=== PATIENT | female | born 1955 | race Caucasian/White ===

== ENCOUNTER 2018-09-23 22:11 | Inpatient (IN) | payer MEDICARE ==
[~2018-09-23] VITALS: Ht 162.6 cm; Wt 89.4 kg
[2018-09-23] MEDS ORDERED: SODIUM CHLORIDE 0.9% 1000ML 1,000 ML IV ONE ×2 (22:45)
[2018-09-23] MEDS ORDERED: DIATRIZOATE MEGL/DIATRIZOA SOD 30 ML BTL PO ONE (23:22)
[2018-09-23 23:36] LABS: BASOPHILS % 0.1 % (0.0-1.0); EOSINOPHILS # (AUTO) 0.1 (0.0-0.4); EOSINOPHILS % 0.4 % (0.0-6.0); HEMATOCRIT 27.3 % (34.2-44.1); HEMOGLOBIN 8.6 g/dL (12.0-16.0); LYMPHOCYTES # (AUTO) 1.7 (1.0-3.2); LYMPHOCYTES % 12.7 % (18.0-39.1); MEAN CORPUSCULAR HGB CONC 31.5 g/dL (31-35); MEAN CORPUSCULAR VOLUME 63.6 fL (81-99); MONOCYTES # (AUTO) 0.8 (0.2-0.8); MONOCYTES % 6.2 % (4.4-11.3); NEUTROPHILS # (AUTO) 10.7 (2.1-6.9); NEUTROPHILS % 79.9 % (38.7-80.0); PLATELET COUNT 174 x10e3/uL (140-360); RED BLOOD COUNT 4.29 x10e6/uL (3.6-5.1); RED CELL DISTRIBUTION WIDTH 15.5 % (11.7-14.4)
[2018-09-23 23:50] LABS: INR 2.02; PROTHROMBIN TIME 24.4 seconds (11.9-14.5)
[2018-09-23 23:52] LABS: PARTIAL THROMBOPLASTIN TIME 65.8 seconds (23.8-35.5)
[2018-09-23 23:55] LABS: AMPHETAMINES SCREEN,URINE NEGATIVE (NEGATIVE); BENZODIAZEPINES SCREEN,URINE NEGATIVE (NEGATIVE); CLARITY,URINE HAZY (CLEAR); COLOR,URINE YELLOW (YELLOW); KETONES,URINE NEGATIVE (NEGATIVE); LEUKOCYTE ESTERASE ,URINE NEGATIVE (NEGATIVE); NITRITE,URINE NEGATIVE (NEGATIVE); PHENCYCLIDINE SCREEN,URINE NEGATIVE (NEGATIVE); PROTEIN,URINE DIPSTICK TRACE (NEGATIVE)
[2018-09-23 23:56] LABS: BILIRUBIN,URINE 1+ (NEGATIVE); URINE UROBILINOGEN 0.2 mg/dL (0.2 - 1)
[2018-09-24] VITALS (28 sets, daily range): BP systolic 90–143; BP diastolic 56–86
[2018-09-24 00:01] LABS: ALBUMIN 3.1 g/dL (3.5-5.0); ALBUMIN/GLOBULIN RATIO 0.8 (0.8-2.0); ANION GAP 14.1 mmol/L (8-16); CALCIUM 8.3 mg/dL (8.4-10.2); CREATININE, SERUM 1.94 mg/dL (0.57-1.11); POTASSIUM 4.1 mmol/L (3.5-5.1)
[2018-09-24 00:03] LABS: BACTERIA,URINE MANY /HPF; EPITHELIAL CELLS,URINE FEW /LPF
--- NOTE | 2018-09-24 00:05 | Diagnostic Imaging Report ---
EXAM: CHEST SINGLE (PORTABLE), AP 1 view INDICATION: Abdominal pain, constipation COMPARISON: None FINDINGS: LINES/TUBES: Left approach dual lead pacemaker LUNGS: Scattered atelectatic changes and vascular congestion. PLEURA: No effusions or pneumothorax. HEART AND MEDIASTINUM: Mild cardiomegaly and valve replacement.. BONES AND SOFT TISSUES: No acute findings. Median sternotomy wires. IMPRESSION: Mild cardiomegaly, vascular congestion and atelectasis. Signed by: Dr. Renetta Carbajal M.D. on 09/24/2018 12:01 AM
[2018-09-24 00:28] LABS: CREATINE KINASE MB 0.6 ng/mL (0-5.0)
--- NOTE | 2018-09-24 01:34 | Diagnostic Imaging Report ---
EXAM: CT ABDOMEN AND PELVIS without IV CONTRAST INDICATION: Abdominal pain COMPARISON: None TECHNIQUE: The abdomen and pelvis were scanned using a multidetector helical scanner. Coronal and sagittal reformations were obtained. Dose modulation, iterative reconstruction, and/or weight based adjustment of the mA/kV was utilized to reduce the radiation dose to as low as reasonably achievable. Routine protocol performed. IV Contrast: None Oral Contrast: Gastrografin CTDIvol has been reviewed. It is below the limits set by the Radiation Protocol Committee (RPC). FINDINGS: LOWER THORAX: Scattered groundglass opacities. Cardiomegaly. LIVER: Low density area measuring approximately 3 cm adjacent to the gallbladder fossa most consistent with focal fatty deposition. The liver is enlarged. BILIARY: Cholecystectomy without ductal dilation. SPLEEN: No masses PANCREAS: Diffuse fatty infiltration. ADRENALS: No nodules RIGHT KIDNEY: No nephroureterolithiasis or hydronephrosis. LEFT KIDNEY: No nephroureterolithiasis or hydronephrosis. Cortical cysts at the medial inferior pole measuring 2.7 cm. GI TRACT: No wall thickening or obstruction. Normal appendix. VESSELS: Mild atherosclerotic changes of the abdominal aorta without aneurysm. PERITONEUM/RETROPERITONEUM: No free air or fluid LYMPH NODES: No lymphadenopathy REPRODUCTIVE ORGANS: The uterus is not visualized. No adnexal masses. BLADDER: The bladder contains hyperdense material. SOFT TISSUES: Surgical clips right groin. BONES: No suspicious bone lesions. IMPRESSION: 1. No acute findings in the abdomen or pelvis to explain patient's abdominal pain. 2. Ground glass opacities in the lung bases are nonspecific. Recommend correlation with symptoms for possible pneumonia. Next 3. The bladder contains hyperdense material. This could be from previously administered IV contrast or possibly blood. Please correlate with urinalysis. Signed by: Dr. Renetta Carbajal M.D. on 09/24/2018 1:31 AM
[2018-09-24] MEDS ORDERED: TRESIBA (01:54)
[2018-09-24] MEDS ORDERED: LISINOPRIL2.5 MG (01:54)
[2018-09-24] MEDS ORDERED: GLIPIZIDE10 MG (01:54)
[2018-09-24] MEDS ORDERED: GABAPENTIN800 MG (01:54)
[2018-09-24] MEDS ORDERED: SPIRONOLACTONE25 MG (01:54)
[2018-09-24] MEDS ORDERED: WARFARIN SODIUM4 MG (01:54)
[2018-09-24] MEDS ORDERED: WARFARIN SODIUM3 MG (01:54)
[2018-09-24] MEDS ORDERED: ONDANSETRON (01:54)
[2018-09-24] MEDS ORDERED: QVAR (01:54)
[2018-09-24] MEDS ORDERED: CEFDINIR300 MG (01:54)
[2018-09-24] MEDS ORDERED: NYSTATIN15 GM (01:54)
[2018-09-24] MEDS ORDERED: LATANOPROST2.5 ML (01:54)
[2018-09-24] MEDS ORDERED: JANUVIA100 MG (01:54)
[2018-09-24] MEDS ORDERED: CARVEDILOL12.5 MG (01:54)
[2018-09-24] MEDS ORDERED: MIRTAZAPINE15 MG (01:54)
[2018-09-24] MEDS ORDERED: FUROSEMIDE40 MG (01:54)
[2018-09-24] MEDS ORDERED: FUROSEMIDE INJ 10 MG/ML 2 ML VIAL IV PRN (02:00)
[2018-09-24] MEDS ORDERED: DEXTROSE 50% SYRINGE 50 ML IV PRN (02:00)
[2018-09-24] MEDS ORDERED: SODIUM CHLORIDE 0.9% 250ML 250 ML IV ONE (02:00)
--- OUTSIDE RECORDS SUMMARY | 2018-09-24 02:18 | XMS REPORT ---
Author Author [facility] Address Unknown Phone Unavailable Care Team Providers Care Weight Loss Physician Name Role Phone Tressa HARDEN Unavailable Unavailable Problems This patient has no known problems. Allergies, Adverse Reactions, Alerts This patient has no known allergies or adverse reactions. Medications This patient has no known medications. Results Test Description Test Time Test Comments Text Results Atomic Results Result Comments CT ABDOMEN/PELVIS WO 2018-09-24 01:16:00 [place] [address] Patient Name: EDGAR ARNOLD MR #: [id number] : 1955 Age/Sex: 63/F Req #: [id number] Adm Physician: Ordered by: VISHNU HARDEN MD Report #: [id number] Location: ER Room/Bed: Procedure: [id number] CT/CT ABDOMEN/PELVIS WO Exam Date: Exam Time: REPORT STATUS: Signed EXAM: CT ABDOMEN AND PELVIS without IV CONTRAST INDICATION: Abdominal pain COMPARISON: None TECHNIQUE: The abdomen and pelvis were scanned using a multidetector helical scanner. Coronal and sagittal reformations were obtained. Dose modulation, iterative reconstruction, and/or weight based adjustment of the mA/kV was utilized to reduce the radiation dose to as low as reasonably achievable. Routine protocol performed. IV Contrast: None Oral Contrast: Gastrografin CTDIvol has been reviewed. It is below the limits set by the Radiation Protocol Committee (RPC). FINDINGS: LOWER THORAX: Scattered groundglass opacities. Cardiomegaly. LIVER: Low density area measuring approximately 3 cm adjacent to the gallbladder fossa most consistent with focal fatty deposition. The liver is enlarged. BILIARY: Cholecystectomy without ductal dilation. SPLEEN: No masses PANCREAS: Diffuse fatty infiltration. ADRENALS: No nodules RIGHT KIDNEY: No nephroureterolithiasis or hydronephrosis. LEFT KIDNEY: No nephrourete rolithiasis or hydronephrosis. Cortical cysts at the medial inferior pole measuring 2.7 cm. GI TRACT: No wall thickening or obstruction. Normal appendix. VESSELS: Mild atherosclerotic changes of the abdominal aorta without aneurysm. PERITONEUM/RETROPERITONEUM: No free air or fluid LYMPH NODES: No lymphadenopathy REPRODUCTIVE ORGANS: The uterus is not visualized. No adnexal masses. BLADDER: The bladder contains hyperdense material. SOFT TISSUES: Surgical clips right groin. BONES: No suspicious bone lesions. IMPRESSION: 1. No acute findings in the abdomen or pe lvis to explain patient's abdominal pain. 2. Ground glass opacities in the lung bases are nonspecific. Recommend correlation with symptoms for possible pneumonia. Next 3. The bladder contains hyperdense material. This could be from previously administered IV contrast or possibly blood. Please correlate with urinalysis. Signed by: Dr. Harika Kwan M.D. on 09/24/2018 1:31 AM Dictated By: HARIKA KWAN MD 0 Transcribed By: GISELLE on 09/24/18130 COPY TO: VISHNU HARDEN MD CHEST SINGLE (PORTABLE) 2018-09-24 00:00:00 [place] [address] Patient Name: EDGAR ARNOLD MR #: [id number] : 1955 Age/Sex: 63/F Req #: [id number] Adm Physician: Ordered by: VISHNU HARDEN MD Report #: [id number] Location: ER Room/Bed: Procedure: [id number] DX/CHEST SINGLE (PORTABLE) Exam Date: 09/23/18 Exam Time: 2334 REPORT STATUS: Signed EXAM: CHEST SINGLE (PORTABLE), AP 1 view INDICATION: Abdominal pain, constipation COMPARISON: None FINDINGS: LINES/TUBES: Left approach dual lead pacemaker LUNGS: Scattered atelectatic changes and vascular congestion. PLEURA: No effusions or pneumothorax. HEART AND MEDIASTINUM: Mild cardiomegaly and valve replacement.. BONES AND SOFT TISSUES: No acute findings. Median sternotomy wires. IMPRESSION: Mild car diomegaly, vascular congestion and atelectasis. Signed by: Dr. Harika Kwan M.D. on 09/24/2018 12:01 AM Dictated By: HARIKA KWAN MD 0001 Transcribed By: GISELLE on 09/24/18 0001 COPY TO: VISHNU HARDEN MD
[2018-09-24] MEDS: CEFTRIAXONE SOD 1 GM/NS 50 ML 50 ML IV SCH (02:45)
[2018-09-24] MEDS: SODIUM CHLORIDE 0.9% 1000ML 1,000 ML IV SCH ×2 (02:45→13:10)
[2018-09-24] MEDS: INSULIN REGULAR, HUMAN 100 UNIT/1 ML 3ML VIAL SQ SCH ×5 (07:30→21:10)
[2018-09-24] MEDS: ONDANSETRON HCL INJ 2MG/ML 2ML 2 MG/ML VIAL IV PRN ×3 (07:53→16:26)
[2018-09-24] MEDS ORDERED: PROMETHAZINE 25MG/SOD CHL 0.9% 50 ML ONE (08:07)
[2018-09-24] MEDS ORDERED: PROMETHAZINE 25MG/ NS 50ML (IV) IV ONE (08:15)
[2018-09-24] MEDS ORDERED: MIRTAZAPINE 15 MG TAB PO SCH (09:00)
[2018-09-24] MEDS: LISINOPRIL 2.5 MG TAB PO SCH (09:00)
[2018-09-24] MEDS: CARVEDILOL 12.5 MG TAB PO SCH ×2 (09:00→18:40)
[2018-09-24] MEDS: SPIRONOLACTONE 25 MG TAB PO SCH (09:00)
--- NOTE | 2018-09-24 09:25 | NUR ---
notified dr barker of new consult
--- NOTE | 2018-09-24 09:46 | History and Physical ---
LOCATION: Patient is in ICU 196. CHIEF COMPLAINT: Patient is here for acute nausea, symptoms of diarrhea, abdominal pain, and atrial flutter. HISTORY OF PRESENTING ILLNESS: Patient is a 63-year-old lady with a history of mitral valve replacement, history of hypertension, hyperlipidemia, and history of atrial flutter, who was in his usual state of health until the patient had flown in from [place], [place] to see her brother. The patient came in, initially felt nauseated, vomiting, high fever, and went to an urgent care, was given symptomatic treatment. The patient went home. On the day of admission, the patient started to have abdominal pain with diarrhea with nausea and symptoms of acute UTI, and the patient came in today and was admitted to the hospital for the same. PAST MEDICAL HISTORY 1. History of diabetes mellitus. 2. History of COPD. 3. History of congestive heart failure. 4. History of atrial fibrillation. 5. History of chronic kidney disease. 6. History of breast cancer. 7. History of thalassemia. 8. History of anemia. MEDICATIONS: Medicines she takes at home are carvedilol 12.5 mg twice a day. She is on Omnicef for the UTI, Lasix 40 mg daily, gabapentin 800 mg 3 times a day, glipizide 10 mg daily, latanoprost for her glaucoma, lisinopril 2.5 mg, mirtazapine for depression 50 mg at nighttime. She gets sitagliptin, Januvia 100 mg daily, Aldactone 25 mg daily, warfarin 3 and 4 mg alternatively, and Tresiba insulin for diabetes mellitus. PAST SURGICAL HISTORY: Hysterectomy. Patient also had bilateral mastectomy, tubal ligation, 2 C-sections, and also history of cholecystectomy. ALLERGIES: ALLERGIC TO DIAZEPAM, DIPHENHYDRAMINE, HYDROCODONE, MORPHINE, TEMAZEPAM, TRAMADOL, AND VERAPAMIL. SOCIAL HISTORY: History of smoking in the past. No ETOH. No IV drug abuse either. REVIEW OF SYSTEMS: Positive for chest pain on right side after dry heaving. Positive for shortness of breath. Positive for nausea and vomiting. Positive for diarrhea. No constipation. No rectal bleed. No hematochezia. No hematemesis. Positive for headache. No diplopia. No blurry vision. No paresthesias. No hyperesthesias and also no signs of focal weakness. PHYSICAL EXAMINATION GENERAL: Patient is alert and oriented x3, dry heaving. Has pain in the right side of the chest on dry heaving. VITAL SIGNS: Temperature is 98.5, pulse of 75, respirations of 22, blood pressure is 110/84, pulse oximetry of 100% on 2 liters of nasal cannula. HEENT: Normocephalic, atraumatic. Pupils are reactive to light and accommodation. Does have some pallor. CVS: S1, S2 irregular. LUNGS: Positive for decreased air entry into all lung torres. Positive for few crackles in the lung bases. ABDOMEN: Tender in the epigastrium. EXTREMITIES: No clubbing, no cyanosis, and no edema. LABORATORY VALUES: Initial white count was 15,000, hemoglobin of 8.6, hematocrit of 27.3 with platelet count of 174. Left shift is present. Chemistries; sodium 128, potassium of 4.1, BUN of 33, creatinine of 1.94, glucose of 292. Lactic acid of 9.8, amylase and lipase were normal. Troponin has been negative x1. Ammonia was 62. IMAGING STUDIES: Abdominal CT shows no acute findings in the abdomen or pelvis, ground-glass opacities in the lung bases, recommended correlation for possible pneumonia. Bladder contains hyperdense material from the IV administered previously. Chest x-ray shows mild cardiomegaly, vascular congestion, and atelectasis. ASSESSMENT 1. Urinary tract infection. 2. Patient with acute gastritis. 3. History of atrial fibrillation and flutter. 4. Acute kidney injury. 5. Anemia. 6. Hypotension. 7. Intractable nausea and vomiting. PLAN: To continue the patient in the ICU. Dr. Moran will be consulted. Coumadin restarted. Patient will be given some Phenergan at this time for intractable nausea and vomiting. Protonix IV 40 mg twice a day. Gentle rehydration with IV fluids at 75 mL an hour. Recheck her BMP in the morning. We will continue rechecking her coags on a daily basis, anemia, guaiac stools at this time and also possible GI consult with Dr. Kei Alfaro for possible gastritis. Further recommendation per clinical course. Patient has chronic thalassemia minor. We will continue monitoring and if the hematocrits drop, consult with Dr. James will be done too. For her urinary tract infection, the patient has been started on Rocephin 1 gram q.24 hours in lieu of her acute kidney injury. Further recommendation per clinical course. We will continue keeping the patient in the ICU and we will monitor her continuously. Job#: [id number] NAZARIO
[2018-09-24] MEDS ORDERED: SODIUM CHLORIDE 0.9% 250ML 250 ML ONE (09:58)
[2018-09-24 10:01] LABS: CREATINE KINASE MB 0.6 ng/mL (0-5.0)
[2018-09-24 10:57] LABS: ANION GAP 14.7 mmol/L (8-16); CALCIUM 7.9 mg/dL (8.4-10.2); CREATININE, SERUM 1.19 mg/dL (0.57-1.11); MAGNESIUM 1.8 MG/DL (1.3-2.1); POTASSIUM 3.7 mmol/L (3.5-5.1)
[2018-09-24] MEDS ORDERED: HYDROMORPHONE 2MG/ML 2 MG/ML ML IV PRN (11:00)
[2018-09-24] MEDS ORDERED: GABAPENTIN 400 MG CAP PO SCH (11:00)
[2018-09-24] MEDS: ALBUTEROL SULF 0.083% NEB SOLN 3 ML NEB NEB SCH ×4 (11:00→23:50)
[2018-09-24] MEDS ORDERED: METOCLOPRAMIDE HCL 10 MG/2ML VIAL IV PRN (11:00)
[2018-09-24] MEDS: PANTOPRAZOLE 40 MG 10ML VIAL IV SCH ×2 (11:45→22:45)
[2018-09-24] MEDS: LATANOPROST(OPTH) 2.5 ML BTL OU SCH (11:55)
[2018-09-24] MEDS: PROMETHAZINE HCL (IM) 25 MG/ML VIAL IV PRN ×2 (11:55→16:26)
[2018-09-24] MEDS: IPRATROPIUM BROMIDE 0.02% 2.5 ML NEB NEB SCH ×3 (13:00→23:50)
[2018-09-24] MEDS: ACETAMINOPHEN 325 MG TAB PO PRN (13:37)
[2018-09-24 14:03] LABS: OCCULT BLOOD STOOL NEGATIVE (NEGATIVE)
[2018-09-24 14:59] LABS: BASOPHILS % 0.2 % (0.0-1.0); EOSINOPHILS % 0.4 % (0.0-6.0); HEMATOCRIT 25.2 % (34.2-44.1); HEMOGLOBIN 8.3 g/dL (12.0-16.0); LYMPHOCYTES # (AUTO) 1.2 (1.0-3.2); LYMPHOCYTES % 11.5 % (18.0-39.1); MEAN CORPUSCULAR HEMOGLOBIN 21.7 pg (28-32); MEAN CORPUSCULAR HGB CONC 32.9 g/dL (31-35); MONOCYTES # (AUTO) 0.7 (0.2-0.8); NEUTROPHILS # (AUTO) 8.4 (2.1-6.9); NEUTROPHILS % 79.9 % (38.7-80.0); PLATELET COUNT 112 x10e3/uL (140-360); RED BLOOD COUNT 3.82 x10e6/uL (3.6-5.1); RED CELL DISTRIBUTION WIDTH 16.5 % (11.7-14.4)
[2018-09-24 15:10] LABS: C DIFFICILE TOXIN A&B AMP PROB **POSITIVE** (NEGATIVE)
[2018-09-24 15:15] LABS: INR 2.04; PROTHROMBIN TIME 24.6 seconds (11.9-14.5)
[2018-09-24] MEDS ORDERED: METRONIDAZOLE 500MG/NS 100ML 100 ML IV SCH (16:15)
[2018-09-24] MEDS ORDERED: METRONIDAZOLE 500MG/NS 100ML 100 ML IV ONE (16:16)
[2018-09-24] MEDS: VANCOMYCIN 250MG/5ML ORAL SOLN PO SCH ×2 (16:19→18:29)
[2018-09-24] MEDS ORDERED: POTASSIUM CHLORIDE 20 MEQ TAB CR PO ONE (16:30)
[2018-09-24] MEDS ORDERED: MAGNESIUM OXIDE 400 MG TAB PO ONE (16:30)
[2018-09-24 17:34] LABS: BASOPHILS % 0.3 % (0.0-1.0); EOSINOPHILS # (AUTO) 0.1 (0.0-0.4); EOSINOPHILS % 0.7 % (0.0-6.0); HEMATOCRIT 28.7 % (34.2-44.1); HEMOGLOBIN 8.9 g/dL (12.0-16.0); LYMPHOCYTES # (AUTO) 1.6 (1.0-3.2); LYMPHOCYTES % 15.4 % (18.0-39.1); MEAN CORPUSCULAR VOLUME 67.7 fL (81-99); MONOCYTES # (AUTO) 0.8 (0.2-0.8); MONOCYTES % 7.8 % (4.4-11.3); NEUTROPHILS # (AUTO) 7.8 (2.1-6.9); NEUTROPHILS % 74.7 % (38.7-80.0); PLATELET COUNT 122 x10e3/uL (140-360); RED BLOOD COUNT 4.24 x10e6/uL (3.6-5.1); RED CELL DISTRIBUTION WIDTH 16.5 % (11.7-14.4)
[2018-09-24 17:59] LABS: CREATINE KINASE MB 0.5 ng/mL (0-5.0)
[2018-09-24 18:09] LABS: CLARITY,URINE HAZY (CLEAR); COLOR,URINE YELLOW (YELLOW)
[2018-09-24 18:10] LABS: BACTERIA,URINE MODERATE /HPF; BILIRUBIN,URINE NEGATIVE (NEGATIVE); EPITHELIAL CELLS,URINE FEW /LPF; KETONES,URINE NEGATIVE (NEGATIVE); LEUKOCYTE ESTERASE ,URINE NEGATIVE (NEGATIVE); NITRITE,URINE NEGATIVE (NEGATIVE); PROTEIN,URINE DIPSTICK NEGATIVE (NEGATIVE); URINE UROBILINOGEN 0.2 mg/dL (0.2 - 1)
[2018-09-24 18:24] LABS: BAND NEUTROPHILS % (MANUAL) 7 %; EOSINOPHILS % (MANUAL) 1 % (0-7); LYMPHOCYTES % (MANUAL) 17 % (19-48); MONOCYTES % (MANUAL) 5 % (3.4-9.0); NEUTROPHILS % (MANUAL) 70 % (40-74)
[2018-09-24 18:25] LABS: ANISOCYTOSIS F; POIKILOCYTOSIS MODERATE; POLYCHROMASIA FEW
[2018-09-24 18:26] LABS: ELLIPTOCYTE, RBC SLIGHT; OVALOCYTES MODE; PLATELET ESTIMATE SLIGHTLY DECREASED; PLATELET MORPHOLOGY COMMENT NORMAL; RBC MORPHOLOGY COMMENT ABNORMAL; TEAR DROP CELLS FEW
--- NOTE | 2018-09-24 18:26 | Consultation ---
DATE OF CONSULTATION: September 24, 2018 CARDIAC CONSULTATION REASON FOR CONSULTATION: Acutely ill lady with mitral valve replacement, atrial flutter, possible sepsis, septicemia. HISTORY: A 63-year-old lady who is known with longstanding history of mitral valve disease. Patient had a mitral valve replaced in 1988 in [place]. Furthermore she needs to have a pacemaker implantation. She had third generator change on that pacemaker. She does have history of chronic atrial fibrillation. She is on chronic anticoagulation. Patient came here to visit her family and her brother who . Patient became ill 5 days ago with fevers, chills, possible urinary tract infection-like symptoms. Her problem becoming progressively worse. She felt to have been nauseated, vomiting. She was seen in urgent care clinic. She was given some treatment. She does not know what it is and she went home. Patient came back to this institution with severe abdominal pain, diarrhea, nausea, vomiting, increased frequency of urination, acutely ill and is lethargic. She is admitted to intensive care unit. Cardiac consultation is obtained. I visited the patient who is having continuous retching. She is very uncomfortable. She is having diffuse abdominal tenderness. She is having a little bit of shortness of breath. No chest pain. No dissecting pain. Cough, but no hemoptysis. No swelling of the lower extremity. No pleuritic chest pain. CURRENT MEDICATIONS 1. Coreg 12.5 mg b.i.d. 2. Lasix 20 mg a day. 3. Spironolactone 25 mg a day. 4. Gabapentin 800 mg twice a day. 5. Lisinopril 2.5 mg a day. 6. Warfarin 4 mg daily. Following admission, patient started on ceftriaxone, Protonix and she is giving Reglan and ondansetron p.r.n. in addition to metoclopramide. Tarceva and insulin for diabetes mellitus. ALLERGIES: BENADRYL, VERAPAMIL, TORADOL, HYDROCODONE, DIAZEPAM, MORPHINE AND TEMAZEPAM. PAST MEDICAL HISTORY 1. Mitral valve placement in 1988. 2. Pacemaker implantation with regenerator change. 3. Cystectomy. 4. Diabetes mellitus. 5. COPD. 6. Congestive heart failure. 7. Chronic atrial flutter/fibrillation. 8. Chronic kidney disease. 9. Breast cancer, status post bilateral mastectomy. 10. Thalassemia and chronic anemia. 11. Diabetes mellitus. 12. Cholecystectomy. 13. Hysterectomy. 14. Tubal ligation. SOCIAL HISTORY: Ex-smoker, no alcohol drinker. REVIEW OF SYSTEMS GENERAL: Fever, chills, "feeling miserable." PULMONARY: Easy fatigability and shortness of breath on exertion. CARDIAC: Chronic shortness of breath on exertion. No angina, no orthopnea, no paroxysmal nocturnal dyspnea. Chronic atrial fibrillation. GI: As per acute illness. No hematemesis. No melena or diarrhea. HEENT: Headaches, but no blurry vision. No diplopia. NEUROLOGIC: No prior CVA. HEMATOLOGY: Easy bruising, but no bleeding. FAMILY HISTORY: No family history of premature coronary artery disease. PHYSICAL EXAMINATION VITALS: Height of 5 feet 4 inches, weight of 176 pounds. Blood pressure 100/60, heart rate of 70, respiratory rate of 18. HEENT: Pupils are reactive. NECK: No elevation of jugular venous pulsation. CHEST: Decreased air entry in bases with few crackles. HEART: Regular heart rate. Unable to hear valve click. ABDOMEN: Tender all over. Bowel sounds sluggish. EXTREMITIES: No cyanosis. No clubbing. No edema. NEUROLOGIC: Patient does irritable secondary to acute abdominal pain and retching. LABORATORY DATA: White blood cell count of 15.4, hemoglobin of 8.6, hematocrit 27%, platelet count of 174,000. Left shift is noted. Sodium of 130, potassium 3.7, BUN of 28, creatinine of 1.9. Lactic acid is elevated at 9.8. Amylase and lipase are normal. Troponin is negative. Ammonia was 62. Chest x-ray showing cardiomegaly, vascular congestion and atelectatic changes. INR of 2.02. IMPRESSION AND PLAN 1. Acute urinary tract infection, possible pyelonephritis. 2. Possible acute gastritis. 3. History of fever and artificial mitral valve worry about endocarditis. 4. Atrial flutter/fibrillation. 5. Mitral valve replacement. 6. Dehydration. Elevation with BUN and creatinine. 7. Thalassemia. 8. Anemia. 9. Hypotension initially. 10. Intractable nausea and vomiting. Cardiac-carrasco, patient should have blood cultures. GI consultation is in process as I understand for her intractable nausea and vomiting. Patient started already on antibiotics. More blood cultures to be done. Echocardiogram to be done. Continuation of anticoagulation is must in this patient if warfarin need to be interrupted, probably Lovenox. She will be also checking stool for blood. We will follow this very ill, sick patient with you and questions are answered. The patient seen in the intensive care unit. Job#: [id number] LUCIA
[2018-09-24] MEDS: WARFARIN SOD 2 MG TAB PO SCH (18:28)
--- NOTE | 2018-09-24 19:00 | NUR ---
Report received. Assumed care. Assessment done. See interventions. Sitting up in bed. Talking on phone. No c/o at this time. Addendum: 09/24/18 at 1947 by Suma Rosas RN IV NS @ 75ml/hr.
[2018-09-24] MEDS: METRONIDAZOLE 500MG/NS 100ML 100 ML IV SCH (20:11)
[2018-09-24] MEDS: MIRTAZAPINE 15 MG TAB PO SCH (21:09)
[2018-09-24] MEDS: GABAPENTIN 400 MG CAP PO SCH (21:09)
[2018-09-25] VITALS (26 sets, daily range): BP systolic 92–125; BP diastolic 50–84
[2018-09-25] MEDS: VANCOMYCIN 250MG/5ML ORAL SOLN PO SCH ×6 (00:09→23:36)
[2018-09-25] MEDS: CEFTRIAXONE SOD 1 GM/NS 50 ML 50 ML IV SCH (02:00)
[2018-09-25] MEDS: METRONIDAZOLE 500MG/NS 100ML 100 ML IV SCH ×4 (02:30→20:28)
[2018-09-25] MEDS: ALBUTEROL SULF 0.083% NEB SOLN 3 ML NEB NEB SCH ×6 (03:10→23:05)
[2018-09-25] MEDS: SODIUM CHLORIDE 0.9% 1000ML 1,000 ML IV SCH ×2 (04:00→18:25)
[2018-09-25 05:28] LABS: BASOPHILS % 0.2 % (0.0-1.0); EOSINOPHILS # (AUTO) 0.2 (0.0-0.4); EOSINOPHILS % 1.6 % (0.0-6.0); HEMATOCRIT 28.8 % (34.2-44.1); HEMOGLOBIN 9.6 g/dL (12.0-16.0); LYMPHOCYTES % 9.7 % (18.0-39.1); MEAN CORPUSCULAR HEMOGLOBIN 22.1 pg (28-32); MEAN CORPUSCULAR HGB CONC 33.3 g/dL (31-35); MEAN CORPUSCULAR VOLUME 66.4 fL (81-99); MONOCYTES # (AUTO) 0.7 (0.2-0.8); MONOCYTES % 6.8 % (4.4-11.3); NEUTROPHILS # (AUTO) 8.3 (2.1-6.9); NEUTROPHILS % 80.5 % (38.7-80.0); PLATELET COUNT 123 x10e3/uL (140-360); RED BLOOD COUNT 4.34 x10e6/uL (3.6-5.1); RED CELL DISTRIBUTION WIDTH 17.1 % (11.7-14.4)
[2018-09-25 05:49] LABS: INR 2.22; PROTHROMBIN TIME 26.3 seconds (11.9-14.5)
[2018-09-25 05:56] LABS: ALANINE AMINOTRANSFERASE 51 IU/L (0-55); ALBUMIN 2.7 g/dL (3.5-5.0); ALBUMIN/GLOBULIN RATIO 0.8 (0.8-2.0); ALKALINE PHOSPHATASE 123 IU/L (40-150); ANION GAP 11.2 mmol/L (8-16); BLOOD UREA NITROGEN 19 mg/dL (7-26); BUN/CREATININE RATIO 20 (6-25); CALCIUM 7.7 mg/dL (8.4-10.2); CARBON DIOXIDE 23 mmol/L (22-29); CHLORIDE 99 mmol/L (98-107); CREATININE, SERUM 0.93 mg/dL (0.57-1.11); EST GLOMERULAR FILTRATION RATE > 60 ML/MIN (60-); GLUCOSE 219 mg/dL (74-118); POTASSIUM 4.2 mmol/L (3.5-5.1); SODIUM 129 mmol/L (136-145)
[2018-09-25 06:19] LABS: % IRON SATURATION 9 % (15-50); IRON 15 ug/dL (50-170); TOTAL IRON BINDING CAPACITY 160 ug/dL (261-478); TRANSFERRIN 114 mg/dL (180-382)
[2018-09-25 06:28] LABS: ANISOCYTOSIS MODERATE; HYPOCHROMASIA SLIGHT; PLATELET ESTIMATE SLIGHTLY DECREASED; PLATELET MORPHOLOGY COMMENT NORMAL; RBC MORPHOLOGY COMMENT ABNORMAL; TOXIC GRANULATION SLIGHT
[2018-09-25 06:55] LABS: FOLATE 14.8 ng/mL (7.0-15.4)
[2018-09-25 07:06] LABS: CREATINE KINASE 52 IU/L (29-168)
[2018-09-25] MEDS: IPRATROPIUM BROMIDE 0.02% 2.5 ML NEB NEB SCH ×3 (07:18→19:30)
[2018-09-25] MEDS: LATANOPROST(OPTH) 2.5 ML BTL OU SCH (08:00)
[2018-09-25] MEDS: INSULIN REGULAR, HUMAN 100 UNIT/1 ML 3ML VIAL SQ SCH ×2 (08:08→12:30)
[2018-09-25] MEDS: GABAPENTIN 400 MG CAP PO SCH ×2 (08:50→21:39)
[2018-09-25] MEDS: SPIRONOLACTONE 25 MG TAB PO SCH (08:50)
[2018-09-25] MEDS: PANTOPRAZOLE 40 MG 10ML VIAL IV SCH ×2 (08:50→21:39)
[2018-09-25] MEDS: LISINOPRIL 2.5 MG TAB PO SCH (08:50)
[2018-09-25] MEDS: ONDANSETRON HCL INJ 2MG/ML 2ML 2 MG/ML VIAL IV PRN (08:51)
[2018-09-25] MEDS: ACETAMINOPHEN 325 MG TAB PO PRN (08:52)
[2018-09-25] MEDS: CARVEDILOL 12.5 MG TAB PO SCH ×2 (09:01→17:33)
--- NOTE | 2018-09-25 09:44 | NUR ---
MD James at , informed of pt's PMH, labs, and current situation
[2018-09-25] MEDS: FOLIC ACID 1 MG TAB PO SCH (12:35)
--- NOTE | 2018-09-25 14:40 | NUR ---
Report given to Lidia Amanda RN, pt AOx4, denies pain NAD noted.
--- NOTE | 2018-09-25 15:09 | NUR ---
CM MET WITH PT IN ROOM REGARDING DC PLANS PT WAS VISITING HERE FROM [place], [place] FOR HER BROTHER'S PT IS INDEPENDENT IN [place] LIVES ALONE IN A HOUSE NO DME OR HOME HEALTH GOAL IS TO DC BACK HOME TO [place] GAVE PT MY CARD FOR QUESTIONS/CONCERNS PUT MY NAME AND NUMBER ON PT'S BOARD IN ROOM +
[2018-09-25] MEDS ORDERED: METRONIDAZOLE 500MG/NS 100ML 100 ML IV SCH (16:15)
[2018-09-25] MEDS: WARFARIN SOD 2 MG TAB PO SCH (17:33)
[2018-09-25] MEDS: INSULIN LISPRO 100 UNIT/1 ML 3ML VIAL SQ SCH ×2 (17:33→21:00)
[2018-09-25] MEDS ORDERED: PROMETHAZINE 12.5MG/ NACL 0.9% 50 ML IV PRN (18:45)
--- NOTE | 2018-09-25 19:09 | NUR ---
Handoff report given at bedside to incoming night custodian nurse. Pt on toilet at this time c/o unable to urinate. Bladder scanner brought to room for night custodian nurse to assess post void residual. snuff packing machine operator nurse at bedside.
[2018-09-25] MEDS: MIRTAZAPINE 15 MG TAB PO SCH (21:39)
[2018-09-26] VITALS (7 sets, daily range): BP systolic 94–126; BP diastolic 52–82
[2018-09-26 00:39] LABS: BASOPHILS % 0.3 % (0.0-1.0); EOSINOPHILS # (AUTO) 0.2 (0.0-0.4); EOSINOPHILS % 2.4 % (0.0-6.0); HEMATOCRIT 29.3 % (34.2-44.1); HEMOGLOBIN 9.2 g/dL (12.0-16.0); LYMPHOCYTES # (AUTO) 1.6 (1.0-3.2); LYMPHOCYTES % 16.7 % (18.0-39.1); MEAN CORPUSCULAR HEMOGLOBIN 21.1 pg (28-32); MEAN CORPUSCULAR HGB CONC 31.4 g/dL (31-35); MONOCYTES # (AUTO) 0.6 (0.2-0.8); MONOCYTES % 6.4 % (4.4-11.3); NEUTROPHILS # (AUTO) 6.8 (2.1-6.9); NEUTROPHILS % 72.9 % (38.7-80.0); PLATELET COUNT 171 x10e3/uL (140-360); RED BLOOD COUNT 4.37 x10e6/uL (3.6-5.1); RED CELL DISTRIBUTION WIDTH 17.3 % (11.7-14.4)
[2018-09-26] MEDS ORDERED: DONNATAL/LIDOCAINE/MAALOX 30 ML SUSP PO ONE ×2 (00:45→03:30)
[2018-09-26] MEDS ORDERED: SODIUM CHLORIDE 0.9% 250ML 250 ML ONE (01:53)
[2018-09-26] MEDS: METRONIDAZOLE 500MG/NS 100ML 100 ML IV SCH ×4 (01:55→19:50)
[2018-09-26] MEDS: CEFTRIAXONE SOD 1 GM/NS 50 ML 50 ML IV SCH (01:55)
[2018-09-26] MEDS ORDERED: MAALOX/LIDOCAINE/BENADRYL/NYST 30 ML BTL PO ONE ×2 (02:15→06:15)
[2018-09-26] MEDS: IPRATROPIUM BROMIDE 0.02% 2.5 ML NEB NEB SCH ×4 (02:41→19:55)
[2018-09-26] MEDS: ALBUTEROL SULF 0.083% NEB SOLN 3 ML NEB NEB SCH ×6 (02:41→23:14)
[2018-09-26 05:01] LABS: BASOPHILS % 0.4 % (0.0-1.0); EOSINOPHILS # (AUTO) 0.2 (0.0-0.4); EOSINOPHILS % 2.4 % (0.0-6.0); HEMATOCRIT 28.6 % (34.2-44.1); HEMOGLOBIN 9.1 g/dL (12.0-16.0); LYMPHOCYTES # (AUTO) 1.4 (1.0-3.2); LYMPHOCYTES % 14.3 % (18.0-39.1); MEAN CORPUSCULAR HEMOGLOBIN 21.4 pg (28-32); MEAN CORPUSCULAR HGB CONC 31.8 g/dL (31-35); MEAN CORPUSCULAR VOLUME 67.1 fL (81-99); MONOCYTES # (AUTO) 0.7 (0.2-0.8); MONOCYTES % 7.7 % (4.4-11.3); NEUTROPHILS % 73.5 % (38.7-80.0); PLATELET COUNT 151 x10e3/uL (140-360); RED BLOOD COUNT 4.26 x10e6/uL (3.6-5.1); RED CELL DISTRIBUTION WIDTH 17.5 % (11.7-14.4)
[2018-09-26 05:12] LABS: ANION GAP 11.3 mmol/L (8-16); BLOOD UREA NITROGEN 18 mg/dL (7-26); BUN/CREATININE RATIO 20 (6-25); CALCIUM 7.7 mg/dL (8.4-10.2); CARBON DIOXIDE 21 mmol/L (22-29); CHLORIDE 101 mmol/L (98-107); CREATININE, SERUM 0.91 mg/dL (0.57-1.11); EST GLOMERULAR FILTRATION RATE > 60 ML/MIN (60-); GLUCOSE 243 mg/dL (74-118); POTASSIUM 4.3 mmol/L (3.5-5.1); SODIUM 129 mmol/L (136-145)
[2018-09-26] MEDS: VANCOMYCIN 250MG/5ML ORAL SOLN PO SCH ×3 (05:20→18:34)
--- NOTE | 2018-09-26 06:22 | Diagnostic Imaging Report ---
EXAM: ABDOMEN 2 VIEW DATE: 09/26/2018 12:18 AM INDICATION: Abdominal pain, distention COMPARISON: CT abdomen and pelvis 09/23/2018, chest x-ray 09/23/2018 FINDINGS: LINES/TUBES: None BOWEL PATTERN: No evidence for obstruction. No evidence of free air under the diaphragm or concerning air-fluid levels on upright view. SOFT TISSUES: No abnormal calcifications. No mass effect. Enlarged hepatic silhouette. Cholecystectomy clips in the right upper quadrant. Surgical clips overlie the right groin. LUNG BASES: Partially visualized mitral valve prosthesis. Basilar groundglass opacities are seen on prior abdominal CT. BONES: No acute findings. IMPRESSION: Nonobstructive bowel gas pattern. Signed by: DR. Raf Pollack MD on 09/26/2018 6:18 AM
[2018-09-26 07:20] LABS: HYPOCHROMASIA SLIGHT; PLATELET ESTIMATE ADEQUATE; PLATELET MORPHOLOGY COMMENT FEW LARGE; RBC MORPHOLOGY COMMENT ABNORMAL
[2018-09-26 07:21] LABS: ANISOCYTOSIS MODE; POIKILOCYTOSIS SLIGHT
--- NOTE | 2018-09-26 07:30 | Progress Note ---
DATE: Patient comes in for symptomatic anemia, urinary tract infection, dehydration, and history of . Patient is currently feeling fatigued, lethargic and cannot move. Complains of some abdominal distention and tenderness in the abdomen. Patient also has a history of C. diff. Has been treated with vancomycin and Flagyl. Currently, hypoxic when walking. OBJECTIVE VITALS: Temperature is 98.9, pulse of 78, respirations of 22, blood pressure is 120/60, pulse oximetry 99% on 2 L of oxygen. HEENT: Normocephalic and atraumatic. Patient is pale. CV: S1 and S2. Tachycardic. Regular rhythm. ABDOMEN: Slightly distended and no peritoneal signs. EXTREMITIES: No clubbing. No cyanosis. Trace amount of edema present. LABORATORY VALUES: From today, white count is 9.53, hemoglobin of 9.1, hematocrit of 28.6, and platelet count of 17.5. Lymphocyte count is 14.3. Chemistry: Sodium of 129, potassium of 4.3, BUN 11.3, creatinine of 18, glucose of 243. Coags are PT 26.3, INR is 2.22. Serology positive for C. diff. Stool occult has been negative. IMAGING STUDIES: Done today by Dr. Alfaro with nonobstructive bowel gas pattern in the belly. Otherwise, no other findings. ASSESSMENT 1. Patient with possible septicemia secondary to Clostridium difficile and encephalopathy secondary to sepsis. 2. Diabetes mellitus, uncontrolled: Continue with medications and insulin sliding scale. 3. Chronic obstructive pulmonary disease and congestive heart failure: Continue with diuresis and also albuterol and Atrovent treatment. 4. Chronic atrial fibrillation: Continue with anticoagulation. 5. Chronic kidney disease, stable. 6. History of breast cancer, stable. 7. Thalassemia: Seen by Dr. James. PLAN: Continue with symptomatic care. GI consultation is there for nausea, vomiting and intractable nausea. Blood cultures are negative. Echocardiogram as mentioned above. Continue with anticoagulation. Will follow continuously the patient. Possible consult with Dr. Interiano for the continuum of hypoxia. Further recommendations per clinical course. Will continue monitoring the patient along with the consultants. Job#: [id number] SHARON
[2018-09-26] MEDS: CARVEDILOL 12.5 MG TAB PO SCH ×2 (09:17→17:00)
[2018-09-26] MEDS: LISINOPRIL 2.5 MG TAB PO SCH (09:17)
[2018-09-26] MEDS: GABAPENTIN 400 MG CAP PO SCH ×2 (09:17→21:03)
[2018-09-26] MEDS: FOLIC ACID 1 MG TAB PO SCH (09:17)
[2018-09-26] MEDS: SPIRONOLACTONE 25 MG TAB PO SCH (09:17)
[2018-09-26] MEDS: LATANOPROST(OPTH) 2.5 ML BTL OU SCH (09:17)
[2018-09-26] MEDS: PANTOPRAZOLE 40 MG 10ML VIAL IV SCH ×2 (09:17→22:02)
[2018-09-26] MEDS: IRON SUCROSE 100 MG in SODIUM CHLORIDE 0.9% 100 ML 100 ML IV SCH (09:22)
[2018-09-26] MEDS: INSULIN LISPRO 100 UNIT/1 ML 3ML VIAL SQ SCH ×4 (09:25→21:06)
[2018-09-26] MEDS ORDERED: FUROSEMIDE INJ 10 MG/ML 4 ML VIAL IV ONE (10:15)
[2018-09-26] MEDS: SODIUM CHLORIDE 0.9% 1000ML 1,000 ML IV SCH (10:21)
--- NOTE | 2018-09-26 10:46 | NUR ---
REPORT CALLED TO BILLY RN, PATIENT TRANSFERRED TO ROOM 294, ALL BELONGINGS SENT WITH PATIENT
--- NOTE | 2018-09-26 10:57 | NUR ---
PATIENT RECEIVED FROM [facility] PER WHEEL CHAIR. ALERT AND VERBALLY RESPONSINE. ASSISTED TO RESTROOM AND BACK TO BED. VOIDED LARGE AMOUNT OF YELLOW URINE. ON CONTACT ISOLATION FOR C-DIFF. REMAIN NPO FOR EGD. DR LANGE IN TO SEE PATIENT, NEW ORDER RECEIVED TO STOP IV FLUID. BED IN LOWER POSITION, CALL LIGHT AT REACH. V/S 96.5-82-20-126/82 AND 99%
--- NOTE | 2018-09-26 12:28 | NUR ---
PATIENT OFF UNIT FOR AN EGD.
[2018-09-26] MEDS ORDERED: DEXTROSE 5% 250ML 250 ML IV ONE (14:34)
--- NOTE | 2018-09-26 15:30 | NUR ---
PATIENT BACK TO UNIT FROM A PROCEDURE. REPORT RECEIVED FROM MEGHA LEONARD. PATIENT HAD EGD WITH FINDINGS OF GASTRITIS AND ESOPHAGITIS. ALERT AND VERBALLY RESPONSIVE, BUT DROWSY. ASSISTED FROM STRETCHER TO BED BY 2 STAFFS. V/S 97.2-83-20-106/66 AND 95% ON RA. NOTED WITH BLOOD SUGAR OF 70. ORANGE JUICE AND CRACKERS GIVEN, PATIENT TOLERATED WELL. BED IN LOWER POSITION AND LOCKED. CALL LIGHT AT REACH. IV ANTIBIOTIC INFUSING ORDERED. WILL CLOSELY MONITOR.
--- NOTE | 2018-09-26 15:31 | Operative Report ---
DATE OF PROCEDURE: September 26, 2018 REFERRING PHYSICIAN: Dr. Yung Porras. PROCEDURE PERFORMED: Esophagogastroduodenoscopy with biopsies and esophageal dilatation. INDICATIONS FOR PROCEDURE: Dysphagia to solids, upper abdominal pain. MEDICATION: Patient was done under MAC. Please see anesthesiologist's note. PROCEDURE: With the patient in the left lateral decubitus position, the flexible fiberoptic Olympus gastroscope was introduced into the esophagus under direct visualization without any difficulty. There was some patchy erythema noted in the distal esophagus. The esophagus was then dilated to a size 52-[place] Ritter. The scope was then advanced with ease into the stomach, and mucosa overlying the antrum and the body revealed some patchy intense erythema and low-grade to moderate edema, and biopsies were obtained and sent to stain for H. pylori. There was some retained undigested food in the stomach reflecting some degree of gastroparesis in this patient. Pylorus was of normal contour and shape, was intubated with ease, and the scope was advanced all the way to the 2nd portion of the duodenum. The scope was then withdrawn slowly. Mucosa overlying the proximal 2nd portion and the duodenal bulb appeared to be within normal limits. The scope was then withdrawn back into the stomach and retroflexed, and mucosa overlying the fundus and the cardia appeared to be within normal limits. The scope was then straightened out. It was subsequently withdrawn. Patient tolerated the procedure well. IMPRESSION: 1. Distal esophagitis, mild. 2. Esophagus dilated to size 52-[place] Ritter. 3. Gastritis biopsied. Biopsies sent to stain for H. pylori. 4. Some retained food in the stomach was noted, reflective of some degree of gastroparesis. PLAN: Follow up histology. Continue PPI therapy. Job#: [id number] EV cc:YUNG PORRAS MD
[2018-09-26] MEDS: WARFARIN SOD 2 MG TAB PO SCH (17:23)
[2018-09-26] MEDS ORDERED: FLUMAZENIL 0.5MG/ 5ML VIAL ONE (17:37)
[2018-09-26] MEDS ORDERED: PROPOFOL IV EMULSION 10 MG/ML 20 ML VIAL ONE (17:37)
[2018-09-26] MEDS ORDERED: LIDOCAINE HCL 2% LOCAL INJ 5 ML SDV VIAL INJ ONE (17:37)
[2018-09-26] MEDS ORDERED: MIDAZOLAM HCL 2 MG/2 ML VIAL ONE (18:04)
[2018-09-26] MEDS ORDERED: FENTANYL CITRATE/PF 100MCG/2 ML INJ ONE (18:04)
[2018-09-26] MEDS: FUROSEMIDE 40 MG TAB PO SCH (18:34)
[2018-09-26] MEDS: MIRTAZAPINE 15 MG TAB PO SCH (21:03)
[2018-09-27] VITALS (7 sets, daily range): BP systolic 101–138; BP diastolic 53–88
[2018-09-27] MEDS: VANCOMYCIN 250MG/5ML ORAL SOLN PO SCH ×5 (00:24→23:38)
[2018-09-27] MEDS: CEFTRIAXONE SOD 1 GM/NS 50 ML 50 ML IV SCH (01:41)
[2018-09-27] MEDS: METRONIDAZOLE 500MG/NS 100ML 100 ML IV SCH ×4 (02:30→20:01)
[2018-09-27] MEDS: IPRATROPIUM BROMIDE 0.02% 2.5 ML NEB NEB SCH ×3 (03:11→10:44)
[2018-09-27] MEDS: ALBUTEROL SULF 0.083% NEB SOLN 3 ML NEB NEB SCH ×6 (03:11→23:20)
[2018-09-27] MEDS: FUROSEMIDE 40 MG TAB PO SCH ×2 (05:48→16:42)
[2018-09-27 05:49] LABS: BASOPHILS # (AUTO) 0.1 (0.0-0.1); BASOPHILS % 0.5 % (0.0-1.0); EOSINOPHILS # (AUTO) 0.3 (0.0-0.4); EOSINOPHILS % 3.1 % (0.0-6.0); HEMATOCRIT 30.6 % (34.2-44.1); HEMOGLOBIN 9.3 g/dL (12.0-16.0); LYMPHOCYTES # (AUTO) 1.7 (1.0-3.2); LYMPHOCYTES % 18.4 % (18.0-39.1); MEAN CORPUSCULAR HEMOGLOBIN 20.6 pg (28-32); MEAN CORPUSCULAR HGB CONC 30.4 g/dL (31-35); MEAN CORPUSCULAR VOLUME 67.8 fL (81-99); MONOCYTES # (AUTO) 0.6 (0.2-0.8); MONOCYTES % 6.1 % (4.4-11.3); NEUTROPHILS # (AUTO) 6.5 (2.1-6.9); NEUTROPHILS % 70.1 % (38.7-80.0); PLATELET COUNT 187 x10e3/uL (140-360); RED BLOOD COUNT 4.51 x10e6/uL (3.6-5.1); RED CELL DISTRIBUTION WIDTH 18.1 % (11.7-14.4)
[2018-09-27 06:05] LABS: INR 2.85
[2018-09-27 06:15] LABS: ALBUMIN 2.6 g/dL (3.5-5.0); ALBUMIN/GLOBULIN RATIO 0.8 (0.8-2.0); CALCIUM 8.1 mg/dL (8.4-10.2); CREATININE, SERUM 0.95 mg/dL (0.57-1.11); MAGNESIUM 1.7 MG/DL (1.3-2.1)
--- NOTE | 2018-09-27 07:28 | Progress Note ---
DATE: Currently, feeling better. Does complain of some diarrhea. Did undergo an EGD yesterday. Patient still complains of some abdominal pain and shortness of breath. Currently, better than yesterday. OBJECTIVE VITALS: Temperature is 97.9, pulse of 76, respirations of 18, blood pressure is 101/53, pulse oximetry 96% on 2 L of oxygen. HEENT: Normocephalic and atraumatic. Pupils are reactive to light and accommodation. CV: S1 and S2 normal. Regular rate and rhythm. ABDOMEN: Nontender and nondistended. Slight protuberance. EXTREMITIES: No clubbing. Trace edema. NEUROLOGIC: No sensory or motor deficits noted. As noted, the patient underwent an EGD. EGD showed distal esophagitis and also some gastritis and some degree of gastroparesis. ASSESSMENT 1. Abdominal pain. 2. Clostridium difficile colitis: The patient is on vancomycin and also Flagyl. 3. History of atrial fibrillation: Continue on warfarin. INR has been monitored on a daily basis. 4. Coronary artery disease: Will continue with ENOCH inhibitors and beta blockade, and also statins. Patient is status post pacemaker placement too. PLAN: Continue with CV medications. Continue with antibiotics for C. diff. For her hemophilia, will continue monitoring her H and H. Patient's laboratory values, today's hemoglobin is 9.3, hematocrit of 30.6, stable. Chemistry: Sodium 132, potassium of 4. Glucose have been running a little high at 323 and 215. Coags: INR is 2.8. MICROBIOLOGY: No growth on urine culture or blood culture. Further recommendations per clinical course. Plan will be to start physical therapy today and rehabilitate the patient back to baseline. Patient may stay here 1-2 more days. Possible SNF is this does not get better and/or rehab. Job#: [id number] SHARON
[2018-09-27 07:59] LABS: ANISOCYTOSIS MODERATE; ELLIPTOCYTE, RBC SLIGHT; HYPOCHROMASIA SLIGHT; PLATELET ESTIMATE ADEQUATE; PLATELET MORPHOLOGY COMMENT FEW LARGE; RBC MORPHOLOGY COMMENT ABNORMAL
[2018-09-27] MEDS: IRON SUCROSE 100 MG in SODIUM CHLORIDE 0.9% 100 ML 100 ML IV SCH (08:00)
--- NOTE | 2018-09-27 09:00 | NUR ---
Pt received resting in bed. Alert and oriented x4 on contact isolation for C. Diff. Oriented to staff and surroundings. Encouraged to press call rangel if help needed. All meds given as ordered. Call rangel within reach. Pt is in a bad mood, and stated that she was "cranky". Pt stated that she came here to bury her brother but got sick, and her family keeps bothering her. Will call pastoral care to speak to pt.
[2018-09-27] MEDS: FOLIC ACID 1 MG TAB PO SCH (09:01)
[2018-09-27] MEDS: INSULIN LISPRO 100 UNIT/1 ML 3ML VIAL SQ SCH ×4 (09:01→21:58)
[2018-09-27] MEDS: SPIRONOLACTONE 25 MG TAB PO SCH (09:01)
[2018-09-27] MEDS: LATANOPROST(OPTH) 2.5 ML BTL OU SCH (09:01)
[2018-09-27] MEDS: CARVEDILOL 12.5 MG TAB PO SCH ×2 (09:01→16:42)
[2018-09-27] MEDS: PANTOPRAZOLE 40 MG 10ML VIAL IV SCH ×2 (09:02→21:57)
[2018-09-27] MEDS: LISINOPRIL 2.5 MG TAB PO SCH (09:02)
[2018-09-27] MEDS: GABAPENTIN 400 MG CAP PO SCH ×2 (09:02→21:57)
--- NOTE | 2018-09-27 11:04 | NUR ---
ASSESSMENT: Spiritual Distress Pt overwhelmed by illness. Pt states she is "angry" for several reasons. Pt states she is from [place], [place], attended her brother's and wants to go home. Pt states "every time I come to [place] I get sick." Pt states her suddenly almost 5 years ago. Pt expressed worry about her health. Pt identifies as [employer]. Pt states she helps raise her 4 y/o granddaughter while her daughter works. Intervention: Provided unhurried pastoral presence. Facilitated illness review, life review and storytelling. Facilitated identification of resources. Provided information on how to reach folder hand, if needed. Outcome: Will follow as able. STANLEY SINGH C[employer] And Soil Technician Spiritual Care Department O: [phone] Pager: [phone] ([phone] number calling from)
[2018-09-27] MEDS: WARFARIN SOD 2 MG TAB PO SCH (16:42)
[2018-09-27] MEDS: MIRTAZAPINE 15 MG TAB PO SCH (21:57)
--- NOTE | 2018-09-27 23:30 | NUR ---
DR Baljit SNEED HERE MAKING ROUNDS. MADE HIM AWARE THAT PT IS REQUESTING LAXITIVE. DR STATED NOT AT THIS TIME DUE TO PT HAVING LOOSE STOOLS.
[2018-09-28] VITALS: BP 131/59
[2018-09-28] MEDS: IPRATROPIUM BROMIDE 0.02% 2.5 ML NEB NEB SCH ×4 (01:00→19:44)
[2018-09-28] MEDS: CEFTRIAXONE SOD 1 GM/NS 50 ML 50 ML IV SCH (01:29)
[2018-09-28] MEDS: METRONIDAZOLE 500MG/NS 100ML 100 ML IV SCH ×4 (02:12→20:00)
[2018-09-28] MEDS: ALBUTEROL SULF 0.083% NEB SOLN 3 ML NEB NEB SCH ×6 (03:00→22:30)
[2018-09-28] MEDS: VANCOMYCIN 250MG/5ML ORAL SOLN PO SCH ×4 (05:49→23:48)
[2018-09-28] MEDS: FUROSEMIDE 40 MG TAB PO SCH ×2 (05:49→17:29)
[2018-09-28 06:09] LABS: BASOPHILS % 0.3 % (0.0-1.0); EOSINOPHILS # (AUTO) 0.4 (0.0-0.4); EOSINOPHILS % 4.5 % (0.0-6.0); HEMATOCRIT 31.7 % (34.2-44.1); HEMOGLOBIN 9.9 g/dL (12.0-16.0); LYMPHOCYTES # (AUTO) 2.1 (1.0-3.2); LYMPHOCYTES % 23.2 % (18.0-39.1); MEAN CORPUSCULAR HGB CONC 31.2 g/dL (31-35); MEAN CORPUSCULAR VOLUME 67.2 fL (81-99); MONOCYTES # (AUTO) 0.6 (0.2-0.8); MONOCYTES % 6.4 % (4.4-11.3); NEUTROPHILS # (AUTO) 5.7 (2.1-6.9); PLATELET COUNT 216 x10e3/uL (140-360); RED BLOOD COUNT 4.72 x10e6/uL (3.6-5.1); RED CELL DISTRIBUTION WIDTH 18.6 % (11.7-14.4)
[2018-09-28 06:24] LABS: INR 3.03; PROTHROMBIN TIME 33.5 seconds (11.9-14.5)
[2018-09-28 06:32] LABS: ANION GAP 12.1 mmol/L (8-16); BLOOD UREA NITROGEN 16 mg/dL (7-26); BUN/CREATININE RATIO 21 (6-25); CALCIUM 8.2 mg/dL (8.4-10.2); CARBON DIOXIDE 27 mmol/L (22-29); CHLORIDE 103 mmol/L (98-107); CREATININE, SERUM 0.78 mg/dL (0.57-1.11); EST GLOMERULAR FILTRATION RATE > 60 ML/MIN (60-); GLUCOSE 136 mg/dL (74-118); POTASSIUM 4.1 mmol/L (3.5-5.1); SODIUM 138 mmol/L (136-145)
--- NOTE | 2018-09-28 07:33 | Progress Note ---
DATE: Patient is here for sepsis, history of atrial fibrillation and history of C. diff colitis. The patient continues to have some diarrhea. Abdominal pain is better. The patient wants to go home. OBJECTIVE VITAL SIGNS: Temperature is 97.4, pulse is 92, blood pressure is 131/59, pulse oximetry 92%. HEENT: Normocephalic and atraumatic. Pupils reactive to light and accommodation. There is no icterus present. CARDIOVASCULAR: S1 and S2 normal. ABDOMEN: Slightly distended and tender. EXTREMITIES: No clubbing. No cyanosis. No edema. LABORATORY VALUES: Hemoglobin is 9.9, hematocrit of 31.7. Chemistries are normal. Coags: INR is 3.03. Toxicology normal. Urine microbiology no growth. Blood cultures no growth. ASSESSMENT 1. Abdominal pain. 2. Clostridium difficile colitis. 3. History of atrial fibrillation. 4. Coronary artery disease. 5. The patient also complains of thrush today. PLAN: Continue with IV Flagyl. The patient will possibly be discharged tomorrow. Will also hold her warfarin today and check INR tomorrow. The patient is out of town and needs to go back to [place], [place]. I did talk to her about risks and benefits of flying. Further recommendations per clinical course. Possible discharge tomorrow. Job#: [id number] SHARON
[2018-09-28] MEDS: IRON SUCROSE 100 MG in SODIUM CHLORIDE 0.9% 100 ML 100 ML IV SCH (07:39)
[2018-09-28] MEDS: WARFARIN SOD 2 MG TAB PO SCH (07:40)
[2018-09-28 08:14] VITALS: BP 144/91
[2018-09-28 08:45] VITALS: BP 144/91
--- NOTE | 2018-09-28 08:45 | NUR ---
Pt received resting in bed. Alert and oriented x4. Pt on contact isolation for C. Diff. All meds given as ordered. Emotional support given. Will monitor
[2018-09-28] MEDS: INSULIN LISPRO 100 UNIT/1 ML 3ML VIAL SQ SCH ×4 (08:46→21:00)
[2018-09-28] MEDS: SPIRONOLACTONE 25 MG TAB PO SCH (08:46)
[2018-09-28] MEDS: LATANOPROST(OPTH) 2.5 ML BTL OU SCH (08:46)
[2018-09-28] MEDS: FOLIC ACID 1 MG TAB PO SCH (08:47)
[2018-09-28] MEDS: GABAPENTIN 400 MG CAP PO SCH ×2 (08:47→21:00)
[2018-09-28] MEDS: NYSTATIN SUSPENSION 5 ML UDC PO SCH ×4 (08:47→21:00)
[2018-09-28] MEDS: PANTOPRAZOLE 40 MG 10ML VIAL IV SCH ×2 (08:47→22:15)
[2018-09-28] MEDS: CARVEDILOL 12.5 MG TAB PO SCH ×2 (08:47→17:29)
[2018-09-28 09:37] LABS: ANISOCYTOSIS MODE; HYPOCHROMASIA SLIGHT; PLATELET ESTIMATE ADEQUATE; PLATELET MORPHOLOGY COMMENT NORMAL; POIKILOCYTOSIS SLIGHT; RBC MORPHOLOGY COMMENT ABNORMAL
--- NOTE | 2018-09-28 09:45 | NUR ---
Pt sleeping soundly and no family present. Car Dealer left a card indicating missed visit and instructions on how to contact a human resources benefits assistant. STANLEY SINGH Car Dealer Spiritual Care Department O: [phone] Pager: [phone] ([phone] number calling from)
[2018-09-28 12:40] VITALS: BP 139/79
[2018-09-28 15:47] VITALS: BP 134/80
--- NOTE | 2018-09-28 18:43 | NUR ---
Pt resting comfortably in bed.Call rangel within reach. Will endorse to next shift
--- NOTE | 2018-09-28 19:15 | NUR ---
patient recieved awake, alert, sitting up in bed. vss. no c/o pain noted. pm assessment complete. patient instructed to call for assistance when needed.
[2018-09-28 20:00] VITALS: BP_SYST 124; BP_SYST 153; BP_DIAS 66; BP_DIAS 74
[2018-09-28] MEDS: MIRTAZAPINE 15 MG TAB PO SCH (21:00)
--- NOTE | 2018-09-28 23:45 | NUR ---
here to see patient. patient instructed of need for stool for cdiff. patient verbalizes understanding of this.
[2018-09-29] VITALS: BP 119/74
[2018-09-29] MEDS: IPRATROPIUM BROMIDE 0.02% 2.5 ML NEB NEB SCH ×3 (01:00→10:35)
[2018-09-29] MEDS: METRONIDAZOLE 500MG/NS 100ML 100 ML IV SCH ×3 (01:46→14:42)
[2018-09-29] MEDS: CEFTRIAXONE SOD 1 GM/NS 50 ML 50 ML IV SCH (01:46)
--- NOTE | 2018-09-29 02:10 | NUR ---
iv to right hand d/c'd due to pain when flushed. new iv #22 placed to right hand x 1 stick.
[2018-09-29] MEDS: ALBUTEROL SULF 0.083% NEB SOLN 3 ML NEB NEB SCH ×4 (03:00→14:05)
[2018-09-29 04:00] VITALS: BP 119/82
[2018-09-29] MEDS: FUROSEMIDE 40 MG TAB PO SCH (05:14)
[2018-09-29] MEDS: VANCOMYCIN 250MG/5ML ORAL SOLN PO SCH ×2 (05:14→12:27)
[2018-09-29 06:03] LABS: BASOPHILS % 0.5 % (0.0-1.0); EOSINOPHILS # (AUTO) 0.4 (0.0-0.4); EOSINOPHILS % 4.7 % (0.0-6.0); HEMATOCRIT 29.3 % (34.2-44.1); HEMOGLOBIN 9.5 g/dL (12.0-16.0); LYMPHOCYTES # (AUTO) 1.5 (1.0-3.2); MEAN CORPUSCULAR HEMOGLOBIN 21.4 pg (28-32); MEAN CORPUSCULAR HGB CONC 32.4 g/dL (31-35); MONOCYTES # (AUTO) 0.5 (0.2-0.8); MONOCYTES % 6.3 % (4.4-11.3); NEUTROPHILS # (AUTO) 5.7 (2.1-6.9); NEUTROPHILS % 68.4 % (38.7-80.0); PLATELET COUNT 210 x10e3/uL (140-360); RED BLOOD COUNT 4.44 x10e6/uL (3.6-5.1)
[2018-09-29 06:29] LABS: BLOOD UREA NITROGEN 15 mg/dL (7-26); CALCIUM 8.3 mg/dL (8.4-10.2); CARBON DIOXIDE 25 mmol/L (22-29); CHLORIDE 103 mmol/L (98-107); GLUCOSE 207 mg/dL (74-118); SODIUM 139 mmol/L (136-145)
[2018-09-29 06:45] LABS: INR 3.32
[2018-09-29 06:48] LABS: BUN/CREATININE RATIO 17 (6-25); CREATININE, SERUM 0.76 mg/dL (0.57-1.11); EST GLOMERULAR FILTRATION RATE > 60 ML/MIN (60-)
[2018-09-29 07:01] LABS: BAND NEUTROPHILS % (MANUAL) 1 %; EOSINOPHILS % (MANUAL) 2 % (0-7); LYMPHOCYTES % (MANUAL) 12 % (19-48); MONOCYTES % (MANUAL) 5 % (3.4-9.0); MYELOCYTES % (MANUAL) 1 % (0-0); NEUTROPHILS % (MANUAL) 74 % (40-74)
[2018-09-29 07:02] LABS: ANISOCYTOSIS MODERATE; ELLIPTOCYTE, RBC SLIGHT; HOWELL-JOLLY BODIES FEW; HYPOCHROMASIA MODERATE; PLATELET ESTIMATE ADEQUATE; PLATELET MORPHOLOGY COMMENT NORMAL; POIKILOCYTOSIS SLIGHT; RBC MORPHOLOGY COMMENT ABNORMAL
[2018-09-29 07:30] VITALS: BP 138/69
[2018-09-29] MEDS: INSULIN LISPRO 100 UNIT/1 ML 3ML VIAL SQ SCH ×3 (07:30→16:30)
--- NOTE | 2018-09-29 07:30 | NUR ---
PATIENT SITTING UP IN BED WATCHING TV, DENIED PAIN AT THIS TIME. TELEMETRY BRINDA [address], BRUISES TO BOTH ARMS. BED IN LOWER POSITION, CALL LIGHT AT REACH.
--- NOTE | 2018-09-29 07:36 | Progress Note ---
DATE: Patient is here for hypertension, sepsis, symptomatic anemia, thalassemia, dehydration, urinary tract infection, and C. diff colitis. The patient is currently still complaining of abdominal pain and has abdominal distention. The patient wants to go home. Positive for some diarrhea and still continues. OBJECTIVE VITAL SIGNS: Temperature is 97.5, pulse of 74, respirations of 20, blood pressure is 119/82, and 98% on 2 L of oxygen. HEENT: Normocephalic and atraumatic. Pupils are reactive to light and accommodation. CV: S1 and S2 normal. Regular rate and rhythm. ABDOMEN: Distended slightly. EXTREMITIES: No clubbing. No cyanosis. No edema. Tenderness present in the abdomen. No rebound, however. MICROBIOLOGY: Blood cultures have no growth still. Positive for C. diff as noted above. The patient had an EGD that showed gastritis. Antrum biopsies are pending so far. LABORATORY VALUES: Otherwise normal. ASSESSMENT 1. Abdominal pain. 2. Clostridium difficile colitis: The patient is on vancomycin and Flagyl. Will continue the same. Repeat blood culture has been sent. 3. History of atrial fibrillation: Continue warfarin. Warfarin had been held yesterday. Will repeat INR. 4. Coronary artery disease: ENOCH inhibitor, beta dominique and statins. Continue medications at this time. Will continue with checking her Clostridium difficile. If it is negative, the patient can go home, but did mention to the patient that it is risky to go home considering the fact that she can get a megacolon, and also considering the fact that her sepsis can return. Further recommendations per clinical course. Will talk to the patient and try to keep her inpatient for 1-2 more days. Monitor her closely. Job#: [id number] SHARON
[2018-09-29 07:39] VITALS: BP 138/69
[2018-09-29] MEDS: IRON SUCROSE 100 MG in SODIUM CHLORIDE 0.9% 100 ML 100 ML IV SCH (08:00)
[2018-09-29] MEDS: LATANOPROST(OPTH) 2.5 ML BTL OU SCH (09:00)
[2018-09-29] MEDS: SPIRONOLACTONE 25 MG TAB PO SCH (09:06)
[2018-09-29] MEDS: CARVEDILOL 12.5 MG TAB PO SCH (09:06)
[2018-09-29] MEDS: GABAPENTIN 400 MG CAP PO SCH (09:06)
[2018-09-29] MEDS: FOLIC ACID 1 MG TAB PO SCH (09:06)
[2018-09-29] MEDS: NYSTATIN SUSPENSION 5 ML UDC PO SCH ×2 (09:06→13:00)
[2018-09-29] MEDS: PANTOPRAZOLE 40 MG 10ML VIAL IV SCH (10:45)
--- NOTE | 2018-09-29 11:14 | NUR ---
STOOL SPECIMEN COLLECTED AND SENT TO THE LAB. PATIENT IN BED TALKING ON THE PHONE. CALL LIGHT AT REACH.
[2018-09-29 11:38] VITALS: BP 111/67
--- NOTE | 2018-09-29 15:13 | NUR ---
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
[2018-09-29 15:30] VITALS: BP 102/85
--- NOTE | 2018-09-29 16:04 | NUR ---
WOUND CARE - Pressure Ulcer Prevention Screen Re: LOS >5days - Documented Stage I -P.U. -Musa Score 22. Skin Check Performed - Ambulatory - No Pressure Ulcers Identified. - Maty Franz RECOMMENDATION - -Continue Conservative PUP. Addendum: 09/29/18 at 1608 by Martin Butler RN Amended: Links added.
--- NOTE | 2018-09-29 16:07 | NUR ---
Nutrition Screen Note RD Recommendation for Physician: -Continue ADA diet as ordered Plan of Care: RD following, monitoring for tolerance and adequacy Nutrition reason for involvement: LOS Primary Diagnose(s): 1. Abdominal pain. 2. Clostridium difficile colitis. PMH: DM, COPD, CHF, Afib, CKD, breast cancer, thalassemia, anemia Ht: 64in Wt: 197lb BMI: 33.8kg/m2 IBW: 120lb RD Assessment: (09/29) Chart reviewed. Labs and meds reviewed. 63yo F, who is admitted for nausea, vomiting and fever. 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 Pt denied chewing/swallowing problems and nausea/vomiting. LBM 09/29, loose stool per pt. RN recorded 75-100% meal intake. Will cont to monitor. Please consult as needed. Current Diet: ADA diet Malnutrition Evaluation (09/29/2018) The patient does not meet criteria for a specified degree of malnutrition at this time. Will re-evaluate at follow-up as appropriate. Diet Education Needs Assessment: Diet education not indicated. Pt seeing outpatient RD for diabetes management. Nutrition Care Level: low Signed: Radha Gomez, MS, RD, LD
--- NOTE | 2018-09-29 17:55 | NUR ---
PATIENT DISCHARGED HOME. DISCHARGE INSTRUCTIONS AND FOLLOW UP GIVEN TO PATIENT, SHE VERBALIZED UNDERSTANDING. PRESCRIPTIONS CALLED TO PHARMACY BY MD. IV TO RIGHT HAND REMOVED WITH TIP INTACT. ALL PERSONAL ITEMS TAKEN WITH PATIENT. LEFT UNIT PER WHEEL CHAIR TO FRONT LOBBY IN STABLE CONDITION.
[2018-09-30] MEDS ORDERED: LISINOPRIL 2.5 MG TAB PO SCH (09:00)
== END 2018-09-29 17:41 | disposition home or self-care (01) | DRG 871 ==
LOC: ER 22:11 → ERHOLD 09-24 02:15 → ICU 09-24 02:22 → IMCU 09-25 15:24 → MED/SURG3 09-26 10:45
PROVIDERS: ADMIT Family Medicine; ATTEND Family Medicine
PROC: 30233N1 Transfusion of Nonautologous Red Blood Cells into Peripheral Vein, Percutaneous Approach (ICD-10-PCS; 2018-09-24)
PROC: 0DB78ZX Excision of Stomach, Pylorus, Via Natural or Artificial Opening Endoscopic, Diagnostic (ICD-10-PCS; principal; 2018-09-26 13:45)
DX: A41.89 Other specified sepsis (principal); G93.41 Metabolic encephalopathy; A04.72 Enterocolitis due to Clostridium difficile, not specified as recurrent; I50.22 Chronic systolic (congestive) heart failure; I13.0 Hypertensive heart and chronic kidney disease with heart failure and stage 1 through stage 4 chronic kidney disease, or unspecified chronic kidney disease; E87.1 Hypo-osmolality and hyponatremia; B37.0 Candidal stomatitis; N17.9 Acute kidney failure, unspecified; Z95.2 Presence of prosthetic heart valve; Z95.0 Presence of cardiac pacemaker; J44.9 Chronic obstructive pulmonary disease, unspecified; N18.9 Chronic kidney disease, unspecified; E11.22 Type 2 diabetes mellitus with diabetic chronic kidney disease; Z79.4 Long term (current) use of insulin; D64.9 Anemia, unspecified; D56.3 Thalassemia minor; I48.2 Chronic atrial fibrillation; Z79.01 Long term (current) use of anticoagulants; E03.9 Hypothyroidism, unspecified; E83.42 Hypomagnesemia; Z87.891 Personal history of nicotine dependence; I25.10 Atherosclerotic heart disease of native coronary artery without angina pectoris; K20.9 Esophagitis, unspecified; R65.20 Severe sepsis without septic shock; E11.43 Type 2 diabetes mellitus with diabetic autonomic (poly)neuropathy; K31.84 Gastroparesis; F32.9 Major depressive disorder, single episode, unspecified
CPT/HCPCS: 36415; 43239; 43450; 71045; 74019; 74176; 80048; 80053; 80307; 81001; 82140; 82150; 82270; 82550; 82553; 82607; 82746; 82948; 83540; 83605; 83690; 83735; 83880; 84443; 84466; 84484; 85025; 85045; 85610; 85730; 86850; 86900; 86920; 87040; 87086; 87400; 87493; 88305; 88312; 93005; 93306; 94640; 96372; 99284; J0696; J1756; J1940; J2001; J2250; J2405; J2550; J2765; J7030; J7050; J7070; P9016